=== PATIENT | male | born 1940 | race Caucasian/White ===

== ENCOUNTER 2017-01-16 09:15 | Emergency (ER) | payer MEDICARE, OTHER ==
--- NOTE | 2017-01-16 09:29 | EDM.PDOC ---
[id number]: [place] BLOOD PRESURE [id number] Time Seen by Provider: 01/16/17 09:27 Source of Information: Reports: Patient, Family, RN, RN Notes Reviewed History Limitations: Reports: No Limitations - History of Present Illness INITIAL COMMENTS - FREE TEXT/NARRATIVE: Arrives to ER by POV with c/o "high blood pressure".Patient awoke "rooms spins dizziness" with nausea. He checked his blood pressure and found it be higher than normal. He became concerned and came to the ER. Duration: Chronic Location: Reports: Generalized Improves with: Reports: None Worsens with: Reports: None Associated Symptoms: Reports: No Other Symptoms - Related Data Allergies Allergy/AdvReac Type Severity Reaction Status Date / Time No Known Allergies Allergy Verified 01/16/17 09:48 Home Meds: Home Meds Albuterol [Ventolin HFA] 01/16/17 [History] Amitriptyline HCl [Amitriptyline HCl] 25 mg PO DAILY 01/16/17 [History] Budesonide/Formoterol [Symbicort 80-4.5 MCG] 01/16/17 [History] Clopidogrel [Plavix] 75 mg PO DAILY 01/16/17 [History] Ferrous Fumarate [Ferretts] 1 tab PO DAILY 01/16/17 [History] Finasteride [Finasteride] 5 mg PO DAILY 01/16/17 [History] Folic Acid [Folic Acid] 0.8 mg PO DAILY 01/16/17 [History] Furosemide [Furosemide] 20 mg PO DAILY 01/16/17 [History] Metoprolol Succinate [Toprol XL] 75 mg PO DAILY 01/16/17 [History] Nitroglycerin [Nitrostat] 01/16/17 [History] Ranitidine [Zantac] 150 mg PO BEDTIME 01/16/17 [History] Past Medical History Cardiovascular History: Reports: Hypertension Social & Family History - Family History Family Medical History: Noncontributory - Recreational Drug Use Recreational Drug Use: No - Living Situation & Occupation Living situation: Reports: , with Spouse Occupation: Retired ED ROS GENERAL - Review of Systems Review Of Systems: ROS reveals no pertinent complaints other than HPI. ED EXAM, GENERAL - Physical Exam Exam: See Below Exam Limited By: No Limitations General Appearance: Alert, WD/WN, No Apparent Distress, Anxious Eye Exam: Bilateral Eye: EOMI, Nystagmus (lateral gaze), PERRL Ears: Normal External Exam, Normal Canal, Other (Retracted right tympanic membrane and left TM was dull with clear air-fluid level. ) Nose: No Blood, Other (Moderately inflamed nasal mucosa.) Throat/Mouth: Normal Inspection, Normal Lips, Normal Teeth, Normal Gums, Normal Oropharynx, Normal Voice, No Airway Compromise Head: Atraumatic, Normocephalic Neck: Normal Inspection, Supple, Non-Tender, Full Range of Motion Respiratory/Chest: No Respiratory Distress, Lungs Clear, Normal Breath Sounds, No Accessory Muscle Use, Chest Non-Tender Cardiovascular: Normal Peripheral Pulses, Regular Rate, Rhythm, No Edema, No Gallop, No JVD, No Murmur, No Rub GI/Abdominal: Normal Bowel Sounds, Soft, Non-Tender, No Organomegaly, No Distention, No Abnormal Bruit (Male) Exam: Deferred Rectal (Males) Exam: Deferred Back Exam: Normal Inspection, Full Range of Motion, NT Extremities: Normal Inspection, Normal Range of Motion, Non-Tender, Normal Capillary Refill, No Pedal Edema Neurological: Alert, Oriented, CN II-XII Intact, Normal Cognition, Normal Gait, Normal Reflexes, No Motor/Sensory Deficits Psychiatric: Anxious Skin Exam: Warm, Dry, Intact, Normal Color, No Rash EKG INTERPRETATION EKG Date: 01/16/17 Time: 10:09 Rhythm: other (atrial paced rhythm) Rate (beats/min): 60 Course - Vital Signs Last Recorded V/S: Last Vital Signs Temp 36.3 C 01/16/17 09:44 Pulse 66 01/16/17 09:44 Resp 16 01/16/17 09:44 BP 220/84 H 01/16/17 09:44 Pulse Ox 97 01/16/17 09:44 - Orders/Labs/Meds Labs: Laboratory Tests 01/16/17 01/16/17 01/16/17 Range/Units 10:10 10:10 10:10 WBC 5.4 (5.0-10.0) 10^3/uL RBC 4.26 L (4.6-6.2) 10^6/uL Hgb 13.0 L (14.0-18.0) g/dL Hct 40.8 (40.0-54.0) % MCV 95.8 (80-100) fL MCH 30.5 (27.0-34.0) pg MCHC 31.9 L (33.0-35.0) g/dL Plt Count 251 (150-450) 10^3/uL Neut % (Auto) 52.2 (42.2-75.2) % Lymph % (Auto) 30.5 (20.5-50.1) % [place] % (Auto) 14.9 H (2-8) % Eos % (Auto) 2.0 (1.0-3.0) % Baso % (Auto) 0.4 (0.0-1.0) % Sodium 140 (135-145) mmol/L Potassium 4.2 (3.6-5.0) mmol/L Chloride 107 (101-111) mmol/L Carbon Dioxide 27.0 (21.0-31.0) mmol/L Anion Gap 10.2 BUN 26 H (7-18) mg/dL Creatinine 1.2 (0.6-1.3) mg/dL Est Cr Clr Drug Dosing 52.38 mL/min Estimated GFR (MDRD) 59 BUN/Creatinine Ratio 21.66 Glucose 99 (74-105) mg/dL Calcium 8.7 (8.4-10.2) mg/dl Magnesium 2.1 (1.8-2.5) mg/dL Total Bilirubin 0.7 (0.2-1.0) mg/dL AST 22 (10-42) IU/L ALT 12 (10-60) IU/L Alkaline Phosphatase 67 (42-121) IU/L Troponin I < 0.02 (0.00-0.02) ng/ml B-Natriuretic Peptide 702 H (0-100) pg/ml Total Protein 6.4 L (6.7-8.2) g/dl Albumin 3.4 (3.2-5.5) g/dl Globulin 3.0 Albumin/Globulin Ratio 1.13 TSH, Ultra Sensitive 2.32 (0.35-7.0) uIu/mL Meds: Medications Discontinued Medications Generic Name Dose Route Start Last Admin Trade Name Freq PRN Reason Stop Dose Admin Sodium Chloride 10 ml 01/16/17 10:01 Saline Flush FLUSH ASDIRECTED PRN Keep Vein Open - Radiology Interpretation Free Text/Narrative:: Chest x-ray: Per rad report reveals no evidence for acute pulmonary disease. Departure - Departure Time of Disposition: 11:15 Disposition: Home, Self-Care 01 Condition: good Clinical Impression: Vertigo, Systolic hypertension, isolated Instructions: Vertigo, [id number], Hypertension Forms: ED Department Discharge Additional Instructions: RX Meclizine 25mg. Increase Furosemide 20mg to one tablet twice daily. Call WednesdayJanuary 18 to schedule an ER follow up with Dr. Chao on January 20 to for recheck and repeat blood tests. Return to emergency department if worse at any time or any new symptoms develop.
[2017-01-16 09:45] VITALS: BP 220/84
[2017-01-16] MEDS ORDERED: Sodium Chloride 0.9% 10 ML Syringe FLUSH PRN (10:01)
[2017-01-16 10:40] LABS: CHLORIDE,CL 107 mmol/L (101-111); SODIUM,NA 140 mmol/L (135-145)
--- NOTE | 2017-02-08 11:43 | EKG ---
01/16/2017 - JAMAR BRUSH - EKG is sinus rhythm with a rate of 60. There is first-degree AV block. There is a left axis deviation and nonspecific ST-T wave changes on the lateral leads. There are Q-waves on the septal leads. There are no signs of acute myocardial injury. [facility] /[id number]
== END 2017-01-16 11:42 | disposition home or self-care (01) ==
LOC: DL.ED 09:15
DX: I10 Essential (primary) hypertension (principal); Z79.899 Other long term (current) drug therapy
CPT/HCPCS: 36415; 71020; 80053; 83735; 83880; 84443; 84484; 85025; 93005; 93010; 99283; 99284

== ENCOUNTER 2017-05-06 12:35 | Emergency (ER) | payer MEDICARE, OTHER ==
[2017-05-06 13:04] VITALS: BP 174/69
--- NOTE | 2017-05-06 13:04 | EDM.PDOC ---
ED HPI GENERAL MEDICAL PROBLEM - General Chief Complaint: Lower Extremity Injury/Pain Stated Complaint: [id number] FOOT PAIN Time Seen by Provider: 05/06/17 13:00 Source of Information: Reports: Patient History Limitations: Reports: No Limitations - History of Present Illness INITIAL COMMENTS - FREE TEXT/NARRATIVE: This 76 yo male patient reports to the ED due to increased pain in his right foot. The patient reports he has been seen by Dr. Gonzalez (Podiatry) for plantar fasciitis, started on stretching exercises, but has not had any symptom relief. The patient reports he attempted to get another appointment with Dr. Gonzalez, but could not get an appointment for 30 days. The patient reports he does not think he can deal with the pain that long. The patient reports he has been wearing sandals and walking in bare feet. Onset: Gradual Duration: Constant, Getting Worse Location: Reports: Lower Extremity, Right Quality: Reports: Ache, Sharp Severity: Moderate Improves with: Reports: Rest Worsens with: Reports: Movement Associated Symptoms: Reports: No Other Symptoms - Related Data Allergies Allergy/AdvReac Type Severity Reaction Status Date / Time No Known Allergies Allergy Verified 05/06/17 12:49 Home Meds: Home Meds Albuterol [Ventolin HFA] 2 puff IH BID 01/16/17 [History] Budesonide/Formoterol [Symbicort 80-4.5 MCG] 1 puff IH BID 01/16/17 [History] Clopidogrel [Plavix] 75 mg PO DAILY 01/16/17 [History] Ferrous Fumarate [Ferretts] 1 tab PO DAILY 01/16/17 [History] Finasteride [Finasteride] 5 mg PO DAILY 01/16/17 [History] Folic Acid [Folic Acid] 0.8 mcg PO DAILY 01/16/17 [History] Furosemide [Furosemide] 20 mg PO DAILY 01/16/17 [History] Metoprolol Succinate [Toprol XL] 50 mg PO DAILY 01/16/17 [History] Nitroglycerin [Nitrostat] 1 tab SL ASDIRECTED 01/16/17 [History] Ranitidine [Zantac] 150 mg PO BEDTIME 01/16/17 [History] Aspirin 81 mg PO DAILY 03/03/17 [History] Meclizine [Antivert] 1 tab PO QID PRN 03/03/17 [History] Multivitamin [One Daily] 1 each PO DAILY 03/03/17 [History] Past Medical History HEENT History: Reports: Impaired Vision Cardiovascular History: Reports: Hypertension Respiratory History: Reports: COPD - Past Surgical History Cardiovascular Surgical History: Reports: Pacer Musculoskeletal Surgical History: Reports: Other (See Below) Other Musculoskeletal Surgeries/Procedures:: back surgery Social & Family History - Family History Family Medical History: Noncontributory - Tobacco Use Smoking Status *Q: Former Smoker Used Tobacco, but Quit: Yes Month Tobacco Last Used: 1989 - Caffeine Use Caffeine Use: Reports: Coffee, Soda - Recreational Drug Use Recreational Drug Use: No - Living Situation & Occupation Living situation: Reports: , with Spouse Occupation: Retired Review of Systems - Review of Systems Review Of Systems: ROS reveals no pertinent complaints other than HPI. ED EXAM, GENERAL - Physical Exam Exam: See Below Exam Limited By: No Limitations General Appearance: Alert, WD/WN, Moderate Distress Eye Exam: Bilateral Eye: EOMI, Normal Inspection, PERRL Ears: Normal External Exam, Normal Canal, Hearing Grossly Normal, Normal TMs Nose: Normal Inspection, Normal Mucosa, No Blood Throat/Mouth: Normal Inspection, Normal Lips, Normal Teeth, Normal Gums, Normal Oropharynx, Normal Voice, No Airway Compromise Head: Atraumatic, Normocephalic Neck: Normal Inspection, Supple, Non-Tender, Full Range of Motion Respiratory/Chest: No Respiratory Distress, Lungs Clear, Normal Breath Sounds, No Accessory Muscle Use, Chest Non-Tender Cardiovascular: Normal Peripheral Pulses, Regular Rate, Rhythm, No Edema, No Gallop, No JVD, No Murmur, No Rub GI/Abdominal: Normal Bowel Sounds, Soft, Non-Tender, No Organomegaly, No Distention, No Abnormal Bruit, No Mass (Male) Exam: Deferred Rectal (Males) Exam: Deferred Back Exam: Normal Inspection, Full Range of Motion, NT Extremities: Limited Range of Motion (due to right foot pain) Neurological: Alert, Oriented, CN II-XII Intact, Normal Cognition, Normal Gait, Normal Reflexes, No Motor/Sensory Deficits Psychiatric: Normal Affect, Normal Mood Skin Exam: Warm, Dry, Intact, Normal Color, No Rash Lymphatic: No Adenopathy Departure - Departure Time of Disposition: 13:39 Disposition: Home, Self-Care 01 Condition: Fair Clinical Impression: Plantar fasciitis of right foot - Discharge Information Instructions: Plantar Fasciitis Care Plan Goals: The patient was advised of the examination results during the visit. The patient was given an injection of Toradol while in the ED. The patient was discharged with a script for Toradol (10 mg) #20 to take 1 by mouth every 6 hours. The patient should always wear shoes with good arch support. 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
[2017-05-06] MEDS ORDERED: Ketorolac 30 MG/ML SDV IM ONE (13:05)
== END 2017-05-06 13:52 | disposition home or self-care (01) ==
LOC: DL.ED 12:35
DX: M72.2 Plantar fascial fibromatosis (principal); I10 Essential (primary) hypertension; J44.9 Chronic obstructive pulmonary disease, unspecified; Z87.891 Personal history of nicotine dependence
CPT/HCPCS: 96372; 99283; J1885

== ENCOUNTER 2018-02-14 14:13 | Emergency (ER) | payer MEDICARE, OTHER ==
--- NOTE | 2018-02-14 14:23 | EDM.PDOC ---
ED HPI GENERAL MEDICAL PROBLEM - General Chief Complaint: General Stated Complaint: PASSED OUT Time Seen by Provider: 02/14/18 14:18 Source of Information: Reports: Patient, Family, Old Records, RN, RN Notes Reviewed History Limitations: Reports: No Limitations - History of Present Illness INITIAL COMMENTS - FREE TEXT/NARRATIVE: Pt presents to ER from home by POV with report that he was sitting outside in the heat when he began to feel lightheaded so he moved into the house and minutes later fainted briefly while sitting in his chair. He denies fall. Family called the ambulance, but the pt was feeling better, so he refused ambulance transfer. Pt admits to mild shortness of breath present since this morning and also mild nausea. He didn't drink much water or take much fluid in today. At approx. 10AM pt went to the store for his , and states he was very short of breath with walking. He denies chest pain, cough, orthopnea, fever , chills, vomiting, abdominal pain, or any neurological deficits. About one week ago he states that Dr. Johnson from [facility] increased his lasix and metoprolol and since then his edema has improved. Onset: Today Onset Date: 02/14/18 Duration: Resolved Prior to Arrival Location: Reports: Generalized Quality: Reports: Other (denies pain) Improves with: Reports: None Worsens with: Reports: None Associated Symptoms: Reports: No Other Symptoms - Related Data Allergies Allergy/AdvReac Type Severity Reaction Status Date / Time No Known Allergies Allergy Verified 02/14/18 14:16 Home Meds: Home Meds Clopidogrel [Plavix] 75 mg PO DAILY 01/16/17 [History] Ferrous Fumarate [Ferretts] 1 tab PO DAILY 01/16/17 [History] Finasteride 5 mg PO DAILY 01/16/17 [History] Folic Acid 0.8 mcg PO DAILY 01/16/17 [History] Furosemide 20 mg PO DAILY 01/16/17 [History] Metoprolol Succinate [Toprol XL] 50 mg PO DAILY 01/16/17 [History] Nitroglycerin [Nitrostat] 1 tab SL ASDIRECTED PRN 01/16/17 [History] Aspirin 81 mg PO DAILY 03/03/17 [History] Multivitamin [One Daily] 1 each PO DAILY 03/03/17 [History] Donepezil [Aricept] 5 mg PO BEDTIME 02/14/18 [History] Lutein/Minerals/Vit A,C & E [Ocuvite] 1 tab PO DAILY 02/14/18 [History] atorvaSTATin [Lipitor] 1 tab PO DAILY 02/14/18 [History] Past Medical History HEENT History: Reports: Impaired Vision Cardiovascular History: Reports: Automatic Implantable Cardioverter Defibrillators, Heart Failure, Hypertension, Pacemaker Respiratory History: Reports: COPD Genitourinary History: Reports: Prostate Disorder - Infectious Disease History Infectious Disease History: Reports: Chicken Pox, Measles, Mumps - Past Surgical History Cardiovascular Surgical History: Reports: Pacer Musculoskeletal Surgical History: Reports: Other (See Below) Other Musculoskeletal Surgeries/Procedures:: back surgery Social & Family History - Family History Family Medical History: Noncontributory - Tobacco Use Smoking Status *Q: Former Smoker Used Tobacco, but Quit: Yes Month/Year Tobacco Last Used: years - Caffeine Use Caffeine Use: Reports: Coffee, Soda - Recreational Drug Use Recreational Drug Use: No - Living Situation & Occupation Living situation: Reports: , with Spouse Occupation: Retired ED ROS GENERAL - Review of Systems Review Of Systems: ROS reveals no pertinent complaints other than HPI. - Physical Exam Exam: See Below Exam Limited By: No Limitations General Appearance: Alert, No Apparent Distress, Other (chronically ill, but non -toxic appearing) Eye Exam: Bilateral Eye: EOMI, Normal Inspection, PERRL Ears: Normal External Exam Nose: Normal Inspection, Normal Mucosa, No Blood Throat/Mouth: Normal Inspection, Normal Lips, Normal Oropharynx, Normal Voice, No Airway Compromise Head Exam: Atraumatic, Normocephalic Neck: Normal Inspection, Supple, Non-Tender, Full Range of Motion Respiratory/Chest: No Respiratory Distress, Lungs Clear, No Accessory Muscle Use , Chest Non-Tender, Decreased Breath Sounds Cardiovascular: Regular Rate, Rhythm, Other (+1 B/L lower ext. edema, with compression stocking on to knee Ht.) GI/Abdominal: Normal Bowel Sounds, Soft, Non-Tender, No Distention, No Abnormal Bruit (Male) Exam: Deferred Rectal (Males) Exam: Deferred Neuro Exam (Abbreviated): Alert, Oriented, CN II-XII Intact, Normal Cognition, No Motor/Sensory Deficits Back Exam: Normal Inspection Extremities: Normal Range of Motion, Non-Tender, Pedal Edema Psychiatric: Normal Affect, Normal Mood Skin Exam: Warm, Dry, Intact, Normal Color, No Rash EKG INTERPRETATION EKG Date: 02/14/18 Time: 14:22 Rhythm: Other (SR) Rate (Beats/Min): 63 [place]arrison: LAD-Left Garrison Deviation P-Wave: Present QRS: Other (old inferior Q-waves, abnl. R-wave progression) ST-T: Normal QT: Normal Comparison: No Change EKG Interpretation Comments: Unchanged compared to EKG from 01/2017. Course - Vital Signs Last Recorded V/S: Last Vital Signs Temp 36.3 C 02/14/18 14:18 Pulse 61 02/14/18 15:05 Resp 16 02/14/18 15:05 BP 97/45 L 02/14/18 15:05 Pulse Ox 98 02/14/18 15:05 Orthostatic Blood Pressure [ 84/43 Standing] Orthostatic Blood Pressure [ 182/127 Sitting] Orthostatic Blood Pressure [ 128/48 Supine] - Orders/Labs/Meds Orders: Active Orders 24 hr Category Date Time Status Cardiac Monitoring [RC] . DIRECTED Care 02/14/18 14:34 Active EKG 12 Lead [EKG Documentation Completion] [RC] STAT Care 02/14/18 14:24 Active Orthostatic Vital Signs [RC] ASDIRECTED Care 02/14/18 14:34 Active Peripheral IV Care [RC] . DIRECTED Care 02/14/18 14:25 Active Chest 1V Frontal [CR] Stat Exams 02/14/18 14:24 Taken DRUG SCREEN URINE BIORAD [URCHEM] Stat Lab 02/14/18 14:25 Ordered UA W/MICROSCOPIC [URIN] Stat Lab 02/14/18 14:25 Ordered Sodium Chloride 0.9% [Normal Saline] 500 ml Med 02/14/18 15:15 Ordered IV .BOLUS Sodium Chloride 0.9% [Saline Flush] Med 02/14/18 14:24 Active 10 ml FLUSH ASDIRECTED PRN Peripheral IV Insertion Adult [OM.PC] Stat Oth 02/14/18 14:24 Ordered Medication Orders Sodium Chloride (Normal Saline) 500 mls @ 250 mls/hr IV .BOLUS JUAN Sodium Chloride (Saline Flush) 10 ml FLUSH ASDIRECTED PRN PRN Reason: Keep Vein Open Last Admin: 02/14/18 14:26 Dose: 10 ml Labs: Laboratory Tests 02/14/18 02/14/18 02/14/18 Range/Units 14:24 14:24 14:24 WBC 9.2 (5.0-10.0) 10^3/uL RBC 3.32 L (4.6-6.2) 10^6/uL Hgb 9.8 L D (14.0-18.0) g/dL Hct 32.1 L (40.0-54.0) % MCV 96.7 (80-100) fL MCH 29.5 (27.0-34.0) pg MCHC 30.5 L (33.0-35.0) g/dL Plt Count 263 (150-450) 10^3/uL Neut % (Auto) 56.9 (42.2-75.2) % Lymph % (Auto) 31.8 (20.5-50.1) % [place] % (Auto) 10.2 H (2-8) % Eos % (Auto) 0.9 L (1.0-3.0) % Baso % (Auto) 0.2 (0.0-1.0) % PT 9.9 (9.0-12.0) SEC INR 1.0 (0.9-1.2) APTT 18.7 L (22.0-34.0) SEC Sodium 136 (135-145) mmol/L Potassium 4.9 (3.6-5.0) mmol/L Chloride 104 (101-111) mmol/L Carbon Dioxide 27.0 (21.0-31.0) mmol/L Anion Gap 9.9 BUN 50 H (7-18) mg/dL Creatinine 1.8 H (0.6-1.3) mg/dL Est Cr Clr Drug Dosing 34.36 mL/min Estimated GFR (MDRD) 37 BUN/Creatinine Ratio 27.77 Glucose 131 H (74-105) mg/dL Calcium 8.0 L (8.4-10.2) mg/dl Total Bilirubin 0.8 (0.2-1.0) mg/dL AST 36 (10-42) IU/L ALT 19 (10-60) IU/L Alkaline Phosphatase 58 (42-121) IU/L Troponin I < 0.02 (0.00-0.02) ng/ml B-Natriuretic Peptide 481 H (0-100) pg/ml Total Protein 5.5 L (6.7-8.2) g/dl Albumin 2.9 L (3.2-5.5) g/dl Globulin 2.6 Albumin/Globulin Ratio 1.12 Ethyl Alcohol < 5 mg/dL Meds: Medications Generic Name Dose Route Start Last Admin Trade Name Freq PRN Reason Stop Dose Admin Sodium Chloride 500 mls @ 250 mls/hr 02/14/18 15:15 Normal Saline IV .BOLUS JUAN Sodium Chloride 10 ml 02/14/18 14:24 02/14/18 14:26 Saline Flush FLUSH 10 ml ASDIRECTED PRN Administration Keep Vein Open - Radiology Interpretation Free Text/Narrative:: CXR: No acute process per Rad. report. Departure - Departure Time of Disposition: 15:12 Disposition: DC/Tfer to [facility] 02 Condition: Serious Clinical Impression: Orthostatic hypotension Syncope Qualifiers: Syncope type: unspecified Qualified Code(s): R55 - Syncope and collapse - Discharge Information Forms: ED Department Discharge, Interfacility Transfer EMTALA - My Orders Last 24 Hours: My Active Orders 02/14/18 14:24 EKG 12 Lead [EKG Documentation Completion] [RC] STAT Chest 1V Frontal [CR] Stat Sodium Chloride 0.9% [Saline Flush] 10 ml FLUSH ASDIRECTED PRN Peripheral IV Insertion Adult [OM.PC] Stat 02/14/18 14:25 Peripheral IV Care [RC] . DIRECTED DRUG SCREEN URINE BIORAD [URCHEM] Stat UA W/MICROSCOPIC [URIN] Stat 02/14/18 14:34 Cardiac Monitoring [RC] . DIRECTED Orthostatic Vital Signs [RC] ASDIRECTED 02/14/18 15:15 Sodium Chloride 0.9% [Normal Saline] 500 ml IV .BOLUS - Assessment/Plan Last 24 Hours: My Active Orders 02/14/18 14:24 EKG 12 Lead [EKG Documentation Completion] [RC] STAT Chest 1V Frontal [CR] Stat Sodium Chloride 0.9% [Saline Flush] 10 ml FLUSH ASDIRECTED PRN Peripheral IV Insertion Adult [OM.PC] Stat 02/14/18 14:25 Peripheral IV Care [RC] . DIRECTED DRUG SCREEN URINE BIORAD [URCHEM] Stat UA W/MICROSCOPIC [URIN] Stat 02/14/18 14:34 Cardiac Monitoring [RC] . DIRECTED Orthostatic Vital Signs [RC] ASDIRECTED 02/14/18 15:15 Sodium Chloride 0.9% [Normal Saline] 500 ml IV .BOLUS
[2018-02-14] MEDS ORDERED: Sodium Chloride 0.9% 10 ML Syringe FLUSH PRN (14:24)
[2018-02-14 14:50] LABS: ANION GAP 9.9; CHLORIDE,CL 104 mmol/L (101-111); SODIUM,NA 136 mmol/L (135-145)
[2018-02-14 15:05] VITALS: BP 97/45
[2018-02-14] MEDS ORDERED: Sodium Chloride 0.9% 500 ML IV SCH (15:15)
--- NOTE | 2018-02-15 12:31 | EKG ---
02/14/2018 - JAMAR BRUSH - TIME: 1422 hours FINDINGS: EKG shows sinus rhythm with rate of 65 per minute. There are Q-waves in the inferior leads, suggestive of old infarct. [facility] /[id number]
== END 2018-02-14 15:43 ==
LOC: DL.ED 14:13
DX: I95.1 Orthostatic hypotension (principal); I11.0 Hypertensive heart disease with heart failure; I50.9 Heart failure, unspecified; Z79.899 Other long term (current) drug therapy; Z87.891 Personal history of nicotine dependence
CPT/HCPCS: 36415; 71045; 80053; 83880; 84484; 85025; 85610; 85730; 93005; 93010; 99285; G0480; J7040; J7050; 99284

== ENCOUNTER 2020-09-08 15:26 | Emergency (ER) | payer MEDICARE, OTHER ==
--- NOTE | 2020-09-08 15:35 | PCM.SN.2 ---
- Free Text/Narrative Note: Artemio Jimenez is an 80-year-old male resident of [facility], admitted from his home on 08/27/2020. He is being sent to the ER for evaluation [facility]. He has a large bruise on the anterior chest. His is concerned that his falling will "affect his pacemaker", despite reassurances. Case discussed with ER provider prior to transfer to ER. Past Medical History: Large pituitary adenoma. Received radiation therapy for this but mass has returned and enlarged. He is not considered a surgical candidate, as he would require an open craniotomy to remove the mass. At home, he was becoming more confused, falling frequently. Since [facility], he has had several falls. He does not remember to call for assistance and is found on the floor. There has been no head trauma or loss of consciousness. He is confused and memory is poor. Other history includes: CKD-3. PAD. Hypoalbuminemia. Hypertension. Coromary artery disease. Permanent pacemaker, 2003, for sick sinus syndrome. COPD. GERD. Dyslipidemia. Medications: updated in [employer]. Allergies: Intolerant to gabapentin and metolazone. Vital signs: BP 154/67. HR 68. RR 18. Ox Sat 92% RA. Temp 97.2. Denies: cough, SOB. Covid-19: Has tested negative for Covid-19. Has received the first dose of [place] Covid-19 vaccine. Plan: send to ER for evaluation.
[2020-09-08 16:03] LABS: CHLORIDE,CL 101 mmol/L (98-107); SODIUM,NA 140 mmol/L (136-145)
--- NOTE | 2020-09-08 16:07 | CR ---
PROCEDURE INFORMATION: Exam: XR Chest, 1 View Exam date and time: 09/08/2020 3:51 PM Age: 80 years old Clinical indication: Other: Pain; Additional info: told detention he was having chest pain TECHNIQUE: Imaging protocol: XR of the chest Views: 1 view. COMPARISON: CR Chest 1V Frontal 02/14/2018 2:28 PM FINDINGS: Tubes, catheters and devices: Left-sided pacemaker is present. Lungs: Unremarkable. No consolidation. Pleural space: Trace pleural effusions bilaterally. Heart/Mediastinum: Heart size is moderately enlarged. Moderate size hiatal hernia is noted. Bones/joints: Unremarkable. IMPRESSION: 1. Cardiomegaly and left-sided pacemaker with trace pleural effusions or chronic pleural thickening. No definite pneumonia or pulmonary edema. 2. Moderate size hiatal hernia noted.
--- NOTE | 2020-09-08 16:10 | CT ---
PROCEDURE INFORMATION: Exam: CT Head Without Contrast Exam date and time: 09/08/2020 3:40 PM Age: 80 years old Clinical indication: Other: Confusion; Additional info: Falls pituitary adenoma TECHNIQUE: Imaging protocol: Computed tomography of the head without contrast. Radiation optimization: All CT scans at this facility use at least one of these dose optimization techniques: automated exposure control; mA and/or kV adjustment per patient size (includes targeted exams where dose is matched to clinical indication); or iterative reconstruction. COMPARISON: CT Head wo Cont 03/06/2020 1:06 PM FINDINGS: Brain: A moderate amount of decreased attenuation is present within the periventricular white matter. Finding is nonspecific but most often seen in chronic small-vessel ischemic change. No acute hemorrhage or infarct identified. There is no intracranial mass, mass effect, midline shift or edema. There are no abnormal extra-axial fluid collections. Cerebral ventricles: The ventricles and sulci are moderately prominent consistent with global volume loss/atrophy. Bones/joints: Unremarkable. No acute fracture. Paranasal sinuses: Visualized sinuses are unremarkable. No fluid levels. Mastoid air cells: Visualized mastoid air cells are well aerated. Sella turcica: There is a mass within the sella turcica which measures 1.8 by 1.6 x 2.7 cm in size and is unchanged when compared to the previous examination. 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 Other intra sellar lesions are possible. MRI could further characterize. Soft tissues: Unremarkable. IMPRESSION: 1. Atrophy and nonspecific chronic white matter change. This appears to be stable when compared to the study performed on March 06, 2020. No acute intracranial abnormality identified. 2. 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 Other lesions are possible.
[2020-09-08 16:28] VITALS: BP 127/54; PULSE 71
--- NOTE | 2020-09-08 17:02 | EDM.PDOC ---
ED HPI GENERAL MEDICAL PROBLEM - General Chief Complaint: Cardiovascular Problem Stated Complaint: FELL AT RESIDENTIAL Time Seen by Provider: 09/08/20 15:50 Source of Information: Reports: Patient History Limitations: Reports: No Limitations - History of Present Illness INITIAL COMMENTS - FREE TEXT/NARRATIVE: ED from [facility] with c/o chest pain and large bruise to chest . Patient falling more frequently Today concerned about large bruised area on chest. Patient reports falling against bed post couple of days prior. Points pain upper mid to right chest, not in area of bruising. Documented abarasion to left upper chest on [facility] records. Chest Pain Score (Numeric/FACES): 5 - Related Data Allergies Allergy/AdvReac Type Severity Reaction Status Date / Time gabapentin AdvReac Unknown Confusion Verified 09/08/20 16:04 metolazone AdvReac Unknown Dizziness Verified 09/08/20 16:04 topiramate [From Topamax] AdvReac Unknown Other Verified 09/08/20 16:04 Home Meds: Home Meds Finasteride 5 mg PO DAILY 01/16/17 [History] Furosemide 20 mg PO BID 01/16/17 [History] Pantoprazole Sodium 40 mg PO QAM 02/06/19 [History] Acetaminophen [Tylenol Extra Strength] 500 mg PO Q6H PRN 09/08/20 [History] Acetaminophen [Tylenol Extra Strength] 500 mg PO TID 09/08/20 [History] Albuterol/Ipratropium [DuoNeb 3.0-0.5 MG/3 ML] 3 ml NEB BID 09/08/20 [History] Albuterol/Ipratropium [DuoNeb 3.0-0.5 MG/3 ML] 3 ml NEB Q4H PRN 09/08/20 [History] Aspirin [Aspirin EC] 325 mg PO DAILY 09/08/20 [History] Bisacodyl [Laxative Suppository] 10 mg RC DAILY PRN 09/08/20 [History] Budesonide [Pulmicort] 0.5 mg NEB BID 09/08/20 [History] Ketoconazole [Nizoral 2% Crm] 1 applic TOP DAILY 09/08/20 [History] Lactose-Reduced Food [Ensure] 237 ml PO BID 09/08/20 [History] Metoprolol Tartrate 25 mg PO BID 09/08/20 [History] dexAMETHasone [Dexamethasone] 2 mg PO Q12H 09/08/20 [History] traMADol [Ultram] 50 mg PO Q6H 09/08/20 [History] Past Medical History HEENT History: Reports: Impaired Vision Cardiovascular History: Reports: Automatic Implantable Cardioverter Defibrillators, CAD, Heart Failure, Hypertension, Pacemaker, Other (See Below) Other Cardiovascular History: Localized Edema Respiratory History: Reports: COPD Other Respiratory History: Pt is working with lung doctor in [place] 02/17/18 appointment Gastrointestinal History: Reports: GERD Genitourinary History: Reports: Chronic Renal Insuffiency, Prostate Disorder Neurological History: Reports: None, Other (See Below) Other Neuro History: Headache syndrone. Disorientation syndrome Psychiatric History: Reports: Depression Endocrine/Metabolic History: Reports: None Hematologic History: Reports: None Immunologic History: Reports: None Oncologic (Cancer) History: Reports: None, Other (See Below) Other Oncologic History: Pituitary Adenoma non operable Dermatologic History: Reports: None - Infectious Disease History Infectious Disease History: Reports: Chicken Pox, Measles, Mumps - Past Surgical History Cardiovascular Surgical History: Reports: Pacer Other Cardiovascular Surgeries/Procedures: 2003 6 stents Musculoskeletal Surgical History: Reports: Other (See Below) Other Musculoskeletal Surgeries/Procedures:: back surgery Social & Family History - Family History Family Medical History: No Pertinent Family History - Tobacco Use Tobacco Use Status *Q: Never Tobacco User Second Hand Smoke Exposure: No - Caffeine Use Caffeine Use: Reports: None - Recreational Drug Use Recreational Drug Use: No - Living Situation & Occupation Living situation: Reports: , with Spouse Occupation: Retired ED ROS GENERAL - Review of Systems Review Of Systems: See Below Constitutional: Denies: Fever HEENT: Reports: Glasses Respiratory: Denies: Shortness of Breath, Cough Cardiovascular: Denies: Chest Pain, Lightheadedness GI/Abdominal: Denies: Abdominal Pain Skin: Reports: Bruising Neurological: Reports: Confusion ED EXAM, GENERAL - Physical Exam Exam: See Below Exam Limited By: No Limitations General Appearance: No Apparent Distress Eye Exam: Bilateral Eye: EOMI Ears: Normal External Exam, Hearing Loss Nose: Normal Inspection Neck: Normal Inspection, Full Range of Motion Respiratory/Chest: No Respiratory Distress, Lungs Clear, Normal Breath Sounds, Other (large purple bruise anterior chest, abrasion left upper chest, tender to palpation , medial edge clavicle at sternal notch, whinces with palpation ) Cardiovascular: Normal Peripheral Pulses, Regular Rate, Rhythm, No Edema, Other (sinus on monitor, no ectopy) GI/Abdominal: Normal Bowel Sounds, Soft Extremities: Normal Inspection, Other (capillary bruising bilateral forearms) Neurological: Alert, Oriented (person), Slow to Respond, Other (Unsteady, general weakness, requires assistance to sit upright in bed) Skin Exam: Warm, Dry, Ecchymosis, Other (multiple bruised areas over body, , bilateral forearms, right greater, ). No: Rash Course - Vital Signs Last Recorded V/S: Last Vital Signs Temp 96 F L 09/08/20 15:35 Pulse 71 09/08/20 15:35 Resp 18 09/08/20 15:35 BP 127/54 L 09/08/20 15:35 Pulse Ox 96 09/08/20 15:35 - Orders/Labs/Meds Labs: Laboratory Tests 09/08/20 09/08/20 09/08/20 Range/Units 15:37 15:37 15:37 WBC 9.9 (5.0-10.0) 10^3/uL RBC 4.65 (4.6-6.2) 10^6/uL Hgb 15.0 D (14.0-18.0) g/dL Hct 46.6 (40.0-54.0) % MCV 100.2 H D (80-100) fL MCH 32.3 (27.0-34.0) pg MCHC 32.2 L (33.0-35.0) g/dL Plt Count 218 (150-450) 10^3/uL Neut % (Auto) 71.1 (42.2-75.2) % Lymph % (Auto) 20.1 L (20.5-50.1) % Emery % (Auto) 8.5 H (2-8) % Eos % (Auto) 0.2 L (1.0-3.0) % Baso % (Auto) 0.1 (0.0-1.0) % PT 9.8 (9.0-12.0) SEC INR 1.0 (0.9-1.2) Sodium 140 (136-145) mmol/L Potassium 4.0 (3.5-5.1) mmol/L Chloride 101 (98-107) mmol/L Carbon Dioxide 31 (21-32) mmol/L Anion Gap 12.0 (7-13) mEq/L BUN 34 H (7-18) mg/dL Creatinine 2.01 H (0.70-1.30) mg/dL Est Cr Clr Drug Dosing 29.26 mL/min Estimated GFR (MDRD) 32 BUN/Creatinine Ratio 16.9 (No establ ref range) Glucose 146 H (74-99) mg/dL Calcium 8.8 (8.5-10.1) mg/dL Total Bilirubin 0.8 (0.2-1.0) mg/dL AST 21 (15-37) U/L ALT 29 (16-63) U/L Alkaline Phosphatase 74 (46-116) U/L Troponin I < 0.017 (0.000-0.056) ng/mL Total Protein 6.7 (6.4-8.2) g/dL Albumin 3.1 L (3.4-5.0) g/dL Globulin 3.6 Albumin/Globulin Ratio 0.86 Departure - Departure Time of Disposition: 17:24 Disposition: DC/[facility]fer to [facility] Condition: Good Clinical Impression: Bruising tendency, Falls frequently, Chronic anticoagulation, Chest pain, non- cardiac - Discharge Information *PRESCRIPTION DRUG MONITORING PROGRAM REVIEWED*: No *COPY OF PRESCRIPTION DRUG MONITORING REPORT IN PATIENT JULIUS: No Instructions: Chest Wall Pain Referrals: PCP,None [Primary Care Provider] - Forms: ED Department Discharge Additional Instructions: Resume custodial orders Sepsis Event Note (ED) - Evaluation Sepsis Screening Result: No Definite Risk
== END 2020-09-08 17:30 ==
LOC: DL.ED 15:26
DX: S20.212A Contusion of left front wall of thorax, initial encounter (principal); S50.12XA Contusion of left forearm, initial encounter; S50.11XA Contusion of right forearm, initial encounter; R07.89 Other chest pain; I25.10 Atherosclerotic heart disease of native coronary artery without angina pectoris; I13.0 Hypertensive heart and chronic kidney disease with heart failure and stage 1 through stage 4 chronic kidney disease, or unspecified chronic kidney disease; I50.9 Heart failure, unspecified; N18.9 Chronic kidney disease, unspecified; J44.9 Chronic obstructive pulmonary disease, unspecified; K21.9 Gastro-esophageal reflux disease without esophagitis; Z79.01 Long term (current) use of anticoagulants; Z91.81 History of falling; Z88.8 Allergy status to other drugs, medicaments and biological substances; Z79.899 Other long term (current) drug therapy; Z79.82 Long term (current) use of aspirin; W22.8XXA Striking against or struck by other objects, initial encounter
CPT/HCPCS: 36415; 70450; 71045; 80053; 84484; 85025; 85610; 93005; 99283; 99284-25